=== PATIENT | female | born 1950 | race Caucasian/White ===

== ENCOUNTER 2018-03-31 21:15 | Observation (INO) | payer MEDICARE ==
[2018-03-31 21:33] VITALS: BMI 39.6
[2018-03-31] MEDS ORDERED: Sodium Chloride 0.9% 1,000 ML IV STA (21:50)
--- NOTE | 2018-03-31 22:00 | ED PDOC ---
Arrival/HPI - General Chief Complaint: GI Problem Time Seen by Provider: 03/31/18 21:35 Historian: Patient - History of Present Illness Narrative History of Present Illness (Text): 03/31/18 21:50 Lucrecia Hurt is a 67 year old female, whose past medical history includes anemia and familial polyposis, who presents to the Emergency department complaining of diarrhea. Patient states she has been experiencing multiple episodes of watery diarrhea since yesterday. Patient denies any fever, chills, chest pain, shortness of breath, nausea, vomiting, urinary symptoms, back pain, neck pain, headache, dizziness, or any other complaints. Time/Duration: 24 hours Symptom Onset: Gradual Symptom Course: Unchanged Activities at Onset: Light Context: Home Past Medical History - Provider Review Nursing Documentation Reviewed: Yes - Cardiac Hx Pacemaker: No - Pulmonary Hx Respiratory Disorders: No - Neurological Hx Paralysis: No - Hematological/Oncological Hx Anemia: Yes - Musculoskeletal/Rheumatological Hx Musculoskeletal Disorders: Yes Hx Falls: No - Gastrointestinal Hx Bowel Surgery: Yes (multiple) Hx Gall Bladder Disease: Yes (gallbladder removed) Other/Comment: stomach fibroids with hernia, abdominal mesh. colectomy, J pouch - Psychiatric Hx Emotional Abuse: No Hx Physical Abuse: No Hx Substance Use: No - Surgical History Hx Cholecystectomy: Yes - Anesthesia Hx Anesthesia: Yes Hx Anesthesia Reactions: No Hx Malignant Hyperthermia: No - Suicidal Assessment Feels Threatened In Home Enviroment: No Family/Social History - Physician Review Nursing Documentation Reviewed: Yes Family/Social History: No Known Family HX Smoking Status: Never Smoked Hx Alcohol Use: No Hx Substance Use: No Hx Substance Use Treatment: No Allergies/Home Meds Allergies/Adverse Reactions: Allergies No Known Allergies Allergy (Verified 03/31/18 21:33) Home Medications: Home Meds Medication Instructions Recorded Confirmed Loperamide [Loperamide HCl] 2 mg PO Q6 PRN 04/01/18 04/01/18 Metronidazole [Flagyl] 500 mg PO Q8 04/01/18 04/01/18 Review of Systems - Physician Review All systems were reviewed & negative as marked: Yes - Review of Systems Constitutional: Normal. absent: Fevers Eyes: Normal ENT: Normal Respiratory: Normal. absent: SOB, Cough Cardiovascular: Normal. absent: Chest Pain Gastrointestinal: Diarrhea. absent: Abdominal Pain, Vomiting Genitourinary Female: Normal. absent: Dysuria, Frequency, Hematuria, Urine Output Changes Musculoskeletal: Normal. absent: Back Pain, Neck Pain Skin: Normal. absent: Rash Neurological: Normal. absent: Headache, Dizziness Endocrine: Normal Hemo/Lymphatic: Normal Psychiatric: Normal Physical Exam Vital Signs Reviewed: Yes Vital Signs Temp Pulse Resp BP Pulse Ox 03/31/18 21:33 98.0 F 94 H 18 139/84 98 Temperature: Afebrile Blood Pressure: Normal Pulse: Regular Respiratory Rate: Normal Appearance: Positive for: Well-Appearing, Non-Toxic, Comfortable Pain Distress: None Mental Status: Positive for: Alert and Oriented X 3 - Systems Exam Head: Present: Atraumatic, Normocephalic Pupils: Present: PERRL Extroacular Muscles: Present: EOMI Conjunctiva: Present: Normal Mouth: Present: Moist Mucous Membranes Neck: Present: Normal Range of Motion Respiratory/Chest: Present: Clear to Auscultation, Good Air Exchange. No: Respiratory Distress, Accessory Muscle Use Cardiovascular: Present: Regular Rate and Rhythm, Normal S1, S2. No: Murmurs Abdomen: No: Tenderness, Distention, Peritoneal Signs Back: Present: Normal Inspection Upper Extremity: Present: Normal Inspection. No: Cyanosis, Edema Lower Extremity: Present: Normal Inspection. No: Edema Neurological: Present: GCS=15, CN II-XII Intact, Speech Normal Skin: Present: Warm, Dry, Normal Color. No: Rashes Psychiatric: Present: Alert, Oriented x 3, Normal Insight, Normal Concentration Medical Decision Making ED Course and Treatment: 03/31/18 21:50 Impression: 67 year old female complaining of diarrhea since yesterday. Plan: -- EKG -- Labs, cardiac enzymes, amylase, lipase -- Urinalysis -- IV fluids -- Reassess and disposition Prior Visits: Notes and results from previous visits were reviewed. Progress Notes: 03/31/18 22:00 Reviewed EKG, sinus tachycardia at [address]-segment elevations or depressions, no T-wave inversions, normal intervals. 04/01/18 01:08 CT Abdomen and Pelvis reviewed, shows: Colectomy. Fluid-filled mildly dilated small bowel loops. Minimal bilateral basilar subsegmental atelectatic pulmonary changes. Normal unenhanced liver. Cholecystectomy and nondilated extrahepatic biliary system. Normal unenhanced spleen. Normal pancreas. Normal bilateral adrenal glands. Normal size of the right kidney. There is no right renal mass. There are no right renal calculi. There is no right hydronephrosis. Normal visualized right ureter. Normal size of the left kidney. There is no left renal mass. There are no left renal calculi. There is no left hydronephrosis. Normal visualized left ureter. Normal visualized stomach. Normal small intestine. Normal colon. The appendix is visualized and appears normal. There is no demonstrated peritoneal fluid. Normal abdominal aorta. Normal inferior vena cava. Normal retroperitoneum. Normal urinary bladder. There is no pelvic mass lesion or lymphadenopathy. There is no pelvic fluid. Diastasis of the abdominal wall. Moderate diffuse spondylosis. IMPRESSION: Fluid-filled dilated small bowel loops. Most probably ileus. Developing/low grade partial obstruction is less likely. Clinical evaluation is suggested. No bowel perforation or pneumatosis intestinalis. Prior colectomy. Electronically signed on Apr 01, 2018 12:41:32 AM EST by: Braydon Crook M.D., Certified by ABR, MSK, Neuroradiology 04/01/18 01:[address] Ajay Sánchez, who is aware and agrees with plan. Accepts pt in to hospitalist service. Pt will go to [facility] observation for intractable diarrhea. administrative resident notified. - Lab Interpretations I have reviewed the lab results: Yes - RAD Interpretation Ui Engineer: Radiologist - EKG Interpretation Interpreted by ED Physician: Yes Type: 12 lead EKG - Medication Orders Current Medication Orders: Sodium Chloride (Sodium Chloride 0.9%) 1,000 mls @ 100 mls/hr IV .Q10H STA Stop: 04/01/18 07:49 Last Admin: 03/31/18 21:56 Dose: 100 mls/hr eMAR Start Stop Document 03/31/18 21:56 AD (Rec: 03/31/18 21:56 AD [id number]) Intravenous Solution Start Date 03/31/18 Start Time 21:56 - Scribe Statement The provider has reviewed the documentation as recorded by the Brittany Almanzar Provider Scribe Attestation: All medical record entries made by the Scribe were at my direction and personally dictated by me. I have reviewed the chart and agree that the record accurately reflects my personal performance of the history, physical exam, medical decision making, and the department course for this patient. I have also personally directed, reviewed, and agree with the discharge instructions and disposition. Disposition/Present on Arrival - Present on Arrival Any Indicators Present on Arrival: No History of DVT/PE: No History of Uncontrolled Diabetes: No Urinary Catheter: No History of Decub. Ulcer: No History Surgical Site Infection Following: None - Disposition Have Diagnosis and Disposition been Completed?: Yes Diagnosis: Intractable diarrhea Disposition: HOSPITALIZED Disposition Time: 01:30 Condition: FAIR
[2018-03-31 22:12] LABS: BASO # 0.03 K/mm3 (0.0-2.0); BASO % 0.3 % (0.0-3.0); EOS % 0.3 % (1.5-5.0); GRAN # 6.08 (1.4-6.5); GRAN % 55.6 % (50.0-68.0); HEMOGLOBIN 14.5 g/dL (12.0-16.0); LYMPH % 36.9 % (22.0-35.0); MEAN CELL VOLUME 77.7 fl (80.0-105.0); MEAN CORPUSCULAR HEMOGLOBIN 25.1 pg (25.0-35.0); MEAN CORPUSCULAR HGB CONC 32.3 g/dl (31.0-37.0); MONO # 0.8 (0.1-0.6); MONO % 6.9 % (1.0-6.0); RBC 5.78 10^6/uL (3.5-6.1); RED CELL DISTRIBUTION WIDTH 16.1 % (11.5-14.5); WHITE BLOOD COUNT 10.9 10^3/uL (4.5-11.0)
[2018-03-31 22:21] LABS: INR 1.14; PARTIAL THROMBOPLASTIN TIME 33.2 Seconds (25.1-36.5)
[2018-03-31 22:25] LABS: ALB/GLOB RATIO 1.1 (1.1-1.8); ALBUMIN 4.8 g/dL (3.0-4.8); ALT/SGPT 28 U/L (7-56); AMYLASE 64 U/L (35-125); AST/SGOT 28 U/L (14-36); BLOOD UREA NITROGEN 23 mg/dL (7-21); CALCIUM 9.7 mg/dL (8.4-10.5); GFR NON-AFRICAN AMERICAN 41; LIPASE 59 U/L (23-300)
[2018-03-31 22:36] LABS: TROPONIN I < 0.01 ng/mL
[2018-04-01] MEDS ORDERED: Pneumococcal 23-Valent Vaccine IM ONE (03:33)
[2018-04-01] MEDS ORDERED: Influenza Vaccine 60 mcg/0.5 mL SYR (4YR UP) IM ONE (03:33)
[2018-04-01 03:35] VITALS: RESP 20
--- NOTE | 2018-04-01 03:55 | CP.PCM.HP ---
History of Present Illness - History of Present Illness History of Present Illness: Trupti Livingston PGY-1 Medicine H&P Note for Dr. Elma Sánchez: CC: Diarrhea Pt is a 67 yo F with pmhx of FAP s/p total colectomy who presents to the emergency department for multiple watery stools since Thursday. Pt states that she had suddenly had >5 watery stools since Thursday. She denies recent travel, or eating out at any restaurants. She denies having any sick contacts in the family or anyone in the family having similar symptoms. She also denies the use of recent abx, except for 3 doses of flagyl which she states she began yester day. She denies any associated nausea, vomiting or having blood in her BMs. She also denies fevers, chills, SOB, cough, chest pain, palpitations, dyusria, frequency, lightheadedness or dizziness. She does report R sided abdominal soreness. Pmhx: FAP s/p total colectomy Pshx: Total colectomy 1989, hernia repairx2, jonatan Meds: Denies All: NKDA Social: Denies any tobacco use hx, etoh or illicit drug use Fam Hx: Sister: FAP PMD: [place] GI: Rosa Present on Admission - Present on Admission Any Indicators Present on Admission: No Review of Systems - Review of Systems Review of Systems: 12 point ROS reviewed and negative except for noted above in HPI Past Patient History - Past Social History Smoking Status: Never Smoked - CARDIAC Hx Cardiac Disorders: No Hx Pacemaker: No - PULMONARY Hx Respiratory Disorders: No - NEUROLOGICAL Hx Neurological Disorder: No - HEENT Hx HEENT Problems: No - RENAL Hx Chronic Kidney Disease: No - ENDOCRINE/METABOLIC Hx Endocrine Disorders: No - HEMATOLOGICAL/ONCOLOGICAL Hx Blood Disorders: Yes Hx Anemia: Yes - INTEGUMENTARY Hx Dermatological Problems: Yes Hx Eczema: Yes - MUSCULOSKELETAL/RHEUMATOLOGICAL Hx Musculoskeletal Disorders: No Hx Falls: No - GASTROINTESTINAL Hx Gastrointestinal Disorders: No Hx Colostomy: Yes (with reversal) Hx Crohn's Disease: No (patient unsure) Hx Diverticulitis: No Hx Gall Bladder Disease: Yes (gallbladder removed) Hx Gastroesophageal Reflux: Yes Other/Comment: stomach fibroids with hernia, abdominal mesh. 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 - PSYCHIATRIC Hx Psychophysiologic Disorder: No Hx Emotional Abuse: No Hx Physical Abuse: No Hx Substance Use: No - SURGICAL HISTORY Hx Surgeries: Yes Hx Appendectomy: Yes Hx Cholecystectomy: Yes - ANESTHESIA Hx Anesthesia: Yes Hx Anesthesia Reactions: No Hx Malignant Hyperthermia: No Meds Allergies/Adverse Reactions: Allergies Allergy/AdvReac Type Severity Reaction Status Date / Time No Known Allergies Allergy Verified 03/31/18 21:33 Physical Exam - Constitutional Appears: Well, Non-toxic, No Acute Distress - Head Exam Head Exam: ATRAUMATIC, NORMAL INSPECTION, NORMOCEPHALIC - Eye Exam Eye Exam: EOMI, Normal appearance, PERRL - ENT Exam ENT Exam: Mucous Membranes Dry - Respiratory Exam Respiratory Exam: Clear to Auscultation Bilateral, NORMAL BREATHING PATTERN. absent: Accessory Muscle Use, Decreased Breath Sounds, Rales, Rhonchi, Wheezes, Respiratory Distress, Stridor - Cardiovascular Exam Cardiovascular Exam: RRR, +S1, +S2. absent: Gallop, Rubs, Systolic Murmur - GI/Abdominal Exam GI & Abdominal Exam: Hyperactive Bowel Sounds, Soft, Tenderness (present diffusely on R side of abdomen) - Extremities Exam Extremities exam: Positive for: normal capillary refill, normal inspection, pedal pulses present. Negative for: pedal edema - Back Exam Back exam: NORMAL INSPECTION. absent: CVA tenderness (L), CVA tenderness (R) - Neurological Exam Neurological exam: Alert, Oriented x3 - Psychiatric Exam Psychiatric exam: Normal Affect, Normal Mood - Skin Skin Exam: Dry, Intact, Normal Color, Warm Results - Vital Signs Recent Vital Signs: Last Vital Signs Temp 99.7 F H 04/01/18 02:40 Pulse 89 04/01/18 02:40 Resp 20 04/01/18 02:40 BP 134/86 04/01/18 02:40 Pulse Ox 98 04/01/18 02:40 - Labs Result Diagrams: 03/31/18 22:07 03/31/18 22:07 Labs: Laboratory Results - last 24 hr 03/31/18 03/31/18 03/31/18 22:07 22:07 22:07 WBC 10.9 RBC 5.78 Hgb 14.5 Hct 44.9 MCV 77.7 L MCH 25.1 MCHC 32.3 RDW 16.1 H Plt Count 282 MPV 10.0 Gran % 55.6 Lymph % (Auto) 36.9 H Crook % (Auto) 6.9 H Eos % (Auto) 0.3 L Baso % (Auto) 0.3 Gran # 6.08 Lymph # (Auto) 4.0 H Crook # (Auto) 0.8 H Eos # (Auto) 0.0 Baso # (Auto) 0.03 PT 13.0 H INR 1.14 APTT 33.2 Sodium 140 Potassium 3.9 Chloride 105 Carbon Dioxide 21 Anion Gap 18 BUN 23 H Creatinine 1.3 H Est GFR ( Amer) 50 Est GFR (Non-Af Amer) 41 Random Glucose 100 Calcium 9.7 Total Bilirubin 0.5 AST 28 ALT 28 Alkaline Phosphatase 95 Lactate Dehydrogenase 421 Total Creatine Kinase 57 Troponin I < 0.01 Total Protein 9.0 H Albumin 4.8 Globulin 4.2 Albumin/Globulin Ratio 1.1 Amylase 64 Lipase 59 Assessment & Plan - Assessment and Plan (Free Text) Assessment: Pt is a 67 yo F with pmhx of FAP s/p total colectomy who presents to the emergency department for multiple watery stools since Thursday. Plan: 1. Watery Diarrhea complicated by hx of FAP and total colectomy: - F/u CT abd/pelvis read - GI consulted - Stool WBC, stool culture and stool C.diff 2. PPX: - GI: Protonix - DVT: Heparin
[2018-04-01] MEDS ORDERED: Sodium Chloride 0.9% 1,000 ML IV SCH (05:00)
[2018-04-01] MEDS: Pantoprazole 40 mg EC Tab PO SCH (05:12)
[2018-04-01 06:38] LABS: PH,URINE 5.5 (4.7-8.0); URINE BILIRUBIN MODERATE (NEGATIVE); URINE BLOOD MODERATE (NEGATIVE); URINE GLUCOSE (UA) NEGATIVE (NEGATIVE); URINE LEUKOCYTE ESTERASE SMALL Leu/uL (NEGATIVE); URINE PROTEIN TRACE mg/dL (<30 mg/dL); URINE UROBILINOGEN 0.2 E.U./dL (<1 E.U./dL)
[2018-04-01 06:57] LABS: URINE APPEARANCE CLOUDY (CLEAR); URINE COLOR YELLOW (YELLOW)
[2018-04-01 07:02] LABS: BASO # 0.04 K/mm3 (0.0-2.0); BASO % 0.5 % (0.0-3.0); EOS # 0.1 (0.0-0.7); EOS % 0.8 % (1.5-5.0); GRAN # 4.86 (1.4-6.5); GRAN % 55.1 % (50.0-68.0); HEMOGLOBIN 13.5 g/dL (12.0-16.0); LYMPH # 3.1 (1.2-3.4); LYMPH % 34.8 % (22.0-35.0); MEAN CELL VOLUME 76.8 fl (80.0-105.0); MEAN CORPUSCULAR HEMOGLOBIN 24.9 pg (25.0-35.0); MEAN CORPUSCULAR HGB CONC 32.5 g/dl (31.0-37.0); MEAN PLATELET VOLUME 9.9 fl (7.0-11.0); MONO # 0.8 (0.1-0.6); MONO % 8.8 % (1.0-6.0); RBC 5.42 10^6/uL (3.5-6.1); RED CELL DISTRIBUTION WIDTH 16.1 % (11.5-14.5); WHITE BLOOD COUNT 8.8 10^3/uL (4.5-11.0)
[2018-04-01 07:04] LABS: URINE BACTERIA LARGE (NEG)
[2018-04-01 07:32] LABS: ALBUMIN 4.2 g/dL (3.0-4.8); ALT/SGPT 27 U/L (7-56); AST/SGOT 21 U/L (14-36); BLOOD UREA NITROGEN 21 mg/dL (7-21); CALCIUM 9.5 mg/dL (8.4-10.5); GFR NON-AFRICAN AMERICAN 55
--- NOTE | 2018-04-01 07:54 | CP.PCM.CON ---
<TennilleclairoliZurdo - Last Filed: 04/01/18 12:24> History of Present Illness - History of Present Illness History of Present Illness: GI Fellow PGY4, Consult note. Lucrecia Hurt, 67F, hx of familial adenomatous polyposis syndrome presenting with acute diarrhea. The diarrhea started 2 days ago after recent travel to [place] to visit daughter who was in the hospital. Patient states the diarrhea is 12x/day, watery, non-bloody, NO abdominal pain, fever. She tried Flagyl and Imodium at home without improvement. She does not recall eating any undercooked food are having any sick contacts. w/u revealed abnormal UA and +FOBT. CBC and CMP were fairly unremarkable, mild lymphocytosis. CT of abdomen has been completed, but not read at this time. Last CSPY was less than 1 year ago in [place]. Last EGD was 2015 with multiple esophageal and gastric adenomatous polyps. PMHx - as above PSHx - Total colectomy, cholecystectomy, hernia FMHx - Polyps SocHx - Denies tobacco use. Rare alcohol use. 12pt ROS completed and negative except for above. Past Patient History - Past Social History Smoking Status: Never Smoked - CARDIAC Hx Cardiac Disorders: No Hx Pacemaker: No - PULMONARY Hx Respiratory Disorders: No - NEUROLOGICAL Hx Neurological Disorder: No - HEENT Hx HEENT Problems: No - RENAL Hx Chronic Kidney Disease: No - ENDOCRINE/METABOLIC Hx Endocrine Disorders: No - HEMATOLOGICAL/ONCOLOGICAL Hx Blood Disorders: Yes Hx Anemia: Yes - INTEGUMENTARY Hx Dermatological Problems: Yes Hx Eczema: Yes - MUSCULOSKELETAL/RHEUMATOLOGICAL Hx Musculoskeletal Disorders: No Hx Falls: No - GASTROINTESTINAL Hx Gastrointestinal Disorders: No Hx Colostomy: Yes (with reversal) Hx Crohn's Disease: No (patient unsure) Hx Diverticulitis: No Hx Gall Bladder Disease: Yes (gallbladder removed) Hx Gastroesophageal Reflux: Yes Other/Comment: stomach fibroids with hernia, abdominal mesh. 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 - PSYCHIATRIC Hx Psychophysiologic Disorder: No Hx Emotional Abuse: No Hx Physical Abuse: No Hx Substance Use: No - SURGICAL HISTORY Hx Surgeries: Yes Hx Appendectomy: Yes Hx Cholecystectomy: Yes - ANESTHESIA Hx Anesthesia: Yes Hx Anesthesia Reactions: No Hx Malignant Hyperthermia: No Meds Home Medications: Home Medication List Medication Instructions Recorded Confirmed Type Ciprofloxacin HCl [Cipro] 500 mg PO BID #2 tablet 04/02/18 Rx Allergies/Adverse Reactions: Allergies Allergy/AdvReac Type Severity Reaction Status Date / Time No Known Allergies Allergy Verified 03/31/18 21:33 - Medications Medications: Current Medications Heparin Sodium (Porcine) (Heparin) 5,000 units SC Q8 [facility]; Protocol Last Admin: 04/01/18 05:10 Dose: 5,000 units Sodium Chloride (Sodium Chloride 0.9%) 1,000 mls @ 100 mls/hr IV .Q10H [facility] Last Admin: 04/01/18 05:12 Dose: 100 mls/hr Pantoprazole Sodium (Protonix Ec Tab) 40 mg PO 0600 [facility] Last Admin: 04/01/18 05:12 Dose: 40 mg Physical Exam - Constitutional Appears: Non-toxic, No Acute Distress - Head Exam Head Exam: NORMAL INSPECTION, NORMOCEPHALIC - Eye Exam Eye Exam: EOMI, Normal appearance - ENT Exam ENT Exam: Mucous Membranes Dry, Normal Exam - Respiratory Exam Respiratory Exam: Clear to Auscultation Bilateral, NORMAL BREATHING PATTERN - Cardiovascular Exam Cardiovascular Exam: REGULAR RHYTHM, +S1, +S2 - GI/Abdominal Exam GI & Abdominal Exam: Hyperactive Bowel Sounds, Soft. absent: Organomegaly, Tenderness - Extremities Exam Extremities exam: Positive for: full ROM, normal inspection - Neurological Exam Neurological exam: Alert, CN II-XII Intact, Oriented x3 - Psychiatric Exam Psychiatric exam: Normal Affect, Normal Mood - Skin Skin Exam: Dry, Normal Color Results - Vital Signs Recent Vital Signs: Last Vital Signs Temp 99.7 F H 04/01/18 02:40 Pulse 89 04/01/18 02:40 Resp 20 04/01/18 02:40 BP 134/86 04/01/18 02:40 Pulse Ox 98 04/01/18 02:40 - Labs Result Diagrams: 04/01/18 06:00 04/01/18 06:00 Labs: Laboratory Results - last 24 hr 03/31/18 03/31/18 03/31/18 22:07 22:07 22:07 WBC 10.9 RBC 5.78 Hgb 14.5 Hct 44.9 MCV 77.7 L MCH 25.1 MCHC 32.3 RDW 16.1 H Plt Count 282 MPV 10.0 Gran % 55.6 Lymph % (Auto) 36.9 H [place] % (Auto) 6.9 H Eos % (Auto) 0.3 L Baso % (Auto) 0.3 Gran # 6.08 Lymph # (Auto) 4.0 H [place] # (Auto) 0.8 H Eos # (Auto) 0.0 Baso # (Auto) 0.03 PT 13.0 H INR 1.14 APTT 33.2 Sodium 140 Potassium 3.9 Chloride 105 Carbon Dioxide 21 Anion Gap 18 BUN 23 H Creatinine 1.3 H Est GFR ( Amer) 50 Est GFR (Non-Af Amer) 41 Random Glucose 100 Calcium 9.7 Phosphorus Magnesium Total Bilirubin 0.5 AST 28 ALT 28 Alkaline Phosphatase 95 Lactate Dehydrogenase 421 Total Creatine Kinase 57 Troponin I < 0.01 Total Protein 9.0 H Albumin 4.8 Globulin 4.2 Albumin/Globulin Ratio 1.1 Amylase 64 Lipase 59 Urine Color Urine Appearance Urine pH Ur Specific F[place] Urine Protein Urine Glucose (UA) Urine Ketones Urine Blood Urine Nitrate Urine Bilirubin Urine Urobilinogen Ur Leukocyte Esterase Urine RBC Urine WBC Ur Epithelial Cells Urine Bacteria Urine Other Stool Occult Blood 04/01/18 04/01/18 04/01/18 04:20 05:55 06:00 WBC 8.8 RBC 5.42 Hgb 13.5 Hct 41.6 MCV 76.8 L MCH 24.9 L MCHC 32.5 RDW 16.1 H Plt Count 241 MPV 9.9 Gran % 55.1 Lymph % (Auto) 34.8 [place] % (Auto) 8.8 H Eos % (Auto) 0.8 L Baso % (Auto) 0.5 Gran # 4.86 Lymph # (Auto) 3.1 [place] # (Auto) 0.8 H Eos # (Auto) 0.1 Baso # (Auto) 0.04 PT INR APTT Sodium Potassium Chloride Carbon Dioxide Anion Gap BUN Creatinine Est GFR ( Amer) Est GFR (Non-Af Amer) Random Glucose Calcium Phosphorus Magnesium Total Bilirubin AST ALT Alkaline Phosphatase Lactate Dehydrogenase Total Creatine Kinase Troponin I Total Protein Albumin Globulin Albumin/Globulin Ratio Amylase Lipase Urine Color Yellow Urine Appearance Cloudy Urine pH 5.5 Ur Specific Fritch >= 1.030 Urine Protein Trace H Urine Glucose (UA) Negative Urine Ketones Negative Urine Blood Moderate H Urine Nitrate Positive H Urine Bilirubin Moderate H Urine Urobilinogen 0.2 Ur Leukocyte Esterase Small H Urine RBC 5 - 10 Urine WBC 10 - 15 Ur Epithelial Cells 6 - 8 Urine Bacteria Large Urine Other Mucus Stool Occult Blood Positive H 04/01/18 06:00 WBC RBC Hgb Hct MCV MCH MCHC RDW Plt Count MPV Gran % Lymph % (Auto) [place] % (Auto) Eos % (Auto) Baso % (Auto) Gran # Lymph # (Auto) [place] # (Auto) Eos # (Auto) Baso # (Auto) PT INR APTT Sodium 140 Potassium 4.0 Chloride 110 H Carbon Dioxide 17 L Anion Gap 17 BUN 21 Creatinine 1.0 Est GFR ( Amer) > 60 Est GFR (Non-Af Amer) 55 Random Glucose 108 Calcium 9.5 Phosphorus 4.1 Magnesium 1.8 Total Bilirubin 0.6 AST 21 ALT 27 Alkaline Phosphatase 86 Lactate Dehydrogenase Total Creatine Kinase Troponin I Total Protein 8.1 Albumin 4.2 Globulin 4.0 Albumin/Globulin Ratio 1.0 L Amylase Lipase Urine Color Urine Appearance Urine pH Ur Specific [place] Urine Protein Urine Glucose (UA) Urine Ketones Urine Blood Urine Nitrate Urine Bilirubin Urine Urobilinogen Ur Leukocyte Esterase Urine RBC Urine WBC Ur Epithelial Cells Urine Bacteria Urine Other Stool Occult Blood Assessment & Plan - Assessment and Plan (Free Text) Assessment: #Acute diarrhea with dehydration #FAP s/p total colectomy, J-pouch #Positive FOBT #Abnormal UA PLAN: - Acute diarrhea is likely infectious gastroenteritis. - She has total colectomy so symptoms are likely worse than typical patient with similar disease. - Recommend continued supportive care, importantly IV fluid and electrolyte replacement - f/u Cdiff results and other stool studies. - She sees GI in [place] regularly for CSPY follow up. Last was less than 1 year ago. - Abx for UTI per primary. Currently ceftriaxone which should cover many gram n egative bacteria in the gut. Add Flagyl for anaerobe coverage. - Start bismuth. - Date & Time Date: 04/01/18 Time: 07:52 <Jessica Lee V - Last Filed: 04/02/18 19:58> Meds - Medications Medications: Current Medications Bismuth Subsalicylate (Pepto-Bismol) 262 mg PO TID [facility] Last Admin: 04/01/18 17:42 Dose: Not Given Heparin Sodium (Porcine) (Heparin) 5,000 units SC Q8 [facility]; Protocol Last Admin: 04/01/18 21:25 Dose: Not Given Ceftriaxone Sodium (Rocephin 1 Gram Ivpb) 1 gm in 100 mls @ 100 mls/hr IVPB DAILY [facility]; Protocol Last Admin: 04/01/18 09:03 Dose: 100 mls/hr Lactated Ringer's (Lactated Ringer's) 1,000 mls @ 100 mls/hr IV .Q10H [facility] Last Admin: 04/01/18 19:34 Dose: 100 mls/hr Pantoprazole Sodium (Protonix Ec Tab) 40 mg PO 0600 [facility] Last Admin: 04/01/18 05:12 Dose: 40 mg Results - Vital Signs Recent Vital Signs: Last Vital Signs Temp 98.8 F 04/01/18 15:50 Pulse 80 04/01/18 15:50 Resp 20 04/01/18 15:50 BP 119/77 04/01/18 15:50 Pulse Ox 98 04/01/18 15:50 - Labs Result Diagrams: 04/02/18 06:00 04/02/18 06:00 Labs: Laboratory Results - last 24 hr 04/01/18 04/01/18 04/01/18 04:20 04:20 05:55 WBC RBC Hgb Hct MCV MCH MCHC RDW Plt Count MPV Gran % Lymph % (Auto) [place] % (Auto) Eos % (Auto) Baso % (Auto) Gran # Lymph # (Auto) [place] # (Auto) Eos # (Auto) Baso # (Auto) Sodium Potassium Chloride Carbon Dioxide Anion Gap BUN Creatinine Est GFR ( Amer) Est GFR (Non-Af Amer) Random Glucose Calcium Phosphorus Magnesium Total Bilirubin AST ALT Alkaline Phosphatase Total Protein Albumin Globulin Albumin/Globulin Ratio Urine Color Yellow Urine Appearance Cloudy Urine pH 5.5 Ur Specific Fritch >= 1.030 Urine Protein Trace H Urine Glucose (UA) Negative Urine Ketones Negative Urine Blood Moderate H Urine Nitrate Positive H Urine Bilirubin Moderate H Urine Urobilinogen 0.2 Ur Leukocyte Esterase Small H Urine RBC 5 - 10 Urine WBC 10 - 15 Ur Epithelial Cells 6 - 8 Urine Bacteria Large Urine Other Mucus Stool Occult Blood Positive H Stool Leukocytes, Qual Negative 04/01/18 04/01/18 06:00 06:00 WBC 8.8 RBC 5.42 Hgb 13.5 Hct 41.6 MCV 76.8 L MCH 24.9 L MCHC 32.5 RDW 16.1 H Plt Count 241 MPV 9.9 Gran % 55.1 Lymph % (Auto) 34.8 [place] % (Auto) 8.8 H Eos % (Auto) 0.8 L Baso % (Auto) 0.5 Gran # 4.86 Lymph # (Auto) 3.1 [place] # (Auto) 0.8 H Eos # (Auto) 0.1 Baso # (Auto) 0.04 Sodium 140 Potassium 4.0 Chloride 110 H Carbon Dioxide 17 L Anion Gap 17 BUN 21 Creatinine 1.0 Est GFR ( Amer) > 60 Est GFR (Non-Af Amer) 55 Random Glucose 108 Calcium 9.5 Phosphorus 4.1 Magnesium 1.8 Total Bilirubin 0.6 AST 21 ALT 27 Alkaline Phosphatase 86 Total Protein 8.1 Albumin 4.2 Globulin 4.0 Albumin/Globulin Ratio 1.0 L Urine Color Urine Appearance Urine pH Ur Specific F[place]ch Urine Protein Urine Glucose (UA) Urine Ketones Urine Blood Urine Nitrate Urine Bilirubin Urine Urobilinogen Ur Leukocyte Esterase Urine RBC Urine WBC Ur Epithelial Cells Urine Bacteria Urine Other Stool Occult Blood Stool Leukocytes, Qual Attending/Attestation - Attestation I have personally seen and examined this patient.: Yes I have fully participated in the care of the patient.: Yes I have reviewed all pertinent clinical information: Yes Notes (Text): This is a delayed addendum to GI consult report dictated by the GI Fellow.The patient was seen and examined earlier. Medical records, lab studies, imagings were reviewed. Last 24 hours events reviewed. Agreed with the above treatment plan as outlined in GI Fellow 's notes with the addition of the following acute onset of diarrhea probably infectious UTI History of FAP status post colon resection with a J-pouch History of ventral hernia status post repair with mesh History of small bowel obstruction status post surgery History of gastric carcinoma On examination abdomen soft Kenan ls present Continue ceftriaxone Patient could not tolerate Flagyl, complaining of epigastric discomfort Follow-up stool studies This is a Follow-up for FAP and gastric adenoma 04/02/18 19:54
[2018-04-01] MEDS: Lactated Ringer's 1,000 ML IV SCH ×2 (09:03→19:34)
[2018-04-01] MEDS: cefTRIAXone 1 gm 1 GM/100 ML BAG IVPB SCH (09:03)
--- NOTE | 2018-04-01 12:27 | CT ---
Date of service: 03/31/2018 PROCEDURE: CT Abdomen and Pelvis without intravenous contrast HISTORY: abd pain COMPARISON: None. TECHNIQUE: Without contrast.. Contrast dose: Radiation dose: Total exam DLP = 1027.48 mGy-cm. This CT exam was performed using one or more of the following dose reduction techniques: Automated exposure control, adjustment of the mA and/or kV according to patient size, and/or use of iterative reconstruction technique. FINDINGS: LOWER THORAX: Unremarkable. LIVER: Unremarkable. No gross lesion or ductal dilatation. GALLBLADDER AND BILE DUCTS: Unremarkable. PANCREAS: Unremarkable. No gross lesion or ductal dilatation. SPLEEN: Unremarkable. ADRENALS: Unremarkable. No mass. KIDNEYS AND URETERS: Unremarkable. No hydronephrosis. No solid mass. VASCULATURE: Unremarkable. No aortic aneurysm. No aortic atherosclerotic calcification or mural plaque present. BOWEL: Fluid-filled small bowel loops are seen in the pelvis. There is no distension. Findings most likely due to ileus. Previous colectomy. Suture line seen in the rectosigmoid APPENDIX: Resected. Colectomy PERITONEUM: Unremarkable. No free fluid. No free air. There is diastasis of the abdominal wall with no focal defect LYMPH NODES: Unremarkable. No enlarged lymph nodes. BLADDER: Unremarkable. REPRODUCTIVE: Unremarkable. BONES: No acute fracture. OTHER FINDINGS: The report concurs with the preliminary [facility] report IMPRESSION: Fluid-filled small bowel loops are seen in the pelvis. There is no distension. Findings most likely due to ileus. Previous colectomy. Suture line seen in the rectosigmoid No acute intra-abdominal findings
[2018-04-01] MEDS: Bismuth Subsalicylate 262 mg/15 ml Sus (240 ml) PO SCH ×2 (13:59→17:42)
[2018-04-02] MEDS: Pantoprazole 40 mg EC Tab PO SCH (05:05)
[2018-04-02] MEDS: Lactated Ringer's 1,000 ML IV SCH (05:05)
[2018-04-02 06:26] LABS: BASO # 0.03 K/mm3 (0.0-2.0); BASO % 0.4 % (0.0-3.0); EOS # 0.1 (0.0-0.7); EOS % 0.7 % (1.5-5.0); GRAN # 3.01 (1.4-6.5); GRAN % 41.9 % (50.0-68.0); HEMOGLOBIN 11.9 g/dL (12.0-16.0); LYMPH # 3.4 (1.2-3.4); LYMPH % 47.8 % (22.0-35.0); MEAN CELL VOLUME 77.6 fl (80.0-105.0); MEAN CORPUSCULAR HEMOGLOBIN 24.6 pg (25.0-35.0); MEAN CORPUSCULAR HGB CONC 31.7 g/dl (31.0-37.0); MEAN PLATELET VOLUME 9.8 fl (7.0-11.0); MONO # 0.7 (0.1-0.6); MONO % 9.2 % (1.0-6.0); RBC 4.83 10^6/uL (3.5-6.1); RED CELL DISTRIBUTION WIDTH 16.2 % (11.5-14.5); WHITE BLOOD COUNT 7.2 10^3/uL (4.5-11.0)
[2018-04-02 06:40] LABS: ALB/GLOB RATIO 1.1 (1.1-1.8); ALT/SGPT 29 U/L (7-56); AST/SGOT 22 U/L (14-36)
[2018-04-02 06:42] LABS: ALBUMIN 3.5 g/dL (3.0-4.8); BLOOD UREA NITROGEN 16 mg/dL (7-21); CALCIUM 8.8 mg/dL (8.4-10.5); GFR NON-AFRICAN AMERICAN 55
[2018-04-02] MEDS ORDERED: metroNIDAZOLE IV 500 mg/100 ml 500 MG/100 ML BAG IVPB SCH (06:45)
--- NOTE | 2018-04-02 08:00 | CARD ---
APPROVED REPORT Date of service: 03/31/2018 EKG Measurement Heart [id number] [id number] <Conclusion> Sinus tachycardia LAD PRWP NSSTW changes Prolonged QTc
[2018-04-02 08:14] VITALS: BP 129/74; PULSE 78; TEMP 97.7; O2SAT 95
[2018-04-02] MEDS: cefTRIAXone 1 gm 1 GM/100 ML BAG IVPB SCH (09:54)
[2018-04-02] MEDS: Bismuth Subsalicylate 262 mg/15 ml Sus (240 ml) PO SCH (10:09)
--- NOTE | 2018-04-02 12:13 | CP.PCM.PN ---
<Zurdo Peoples - Last Filed: 04/02/18 14:22> Subjective - Date & Time of Evaluation Date of Evaluation: 04/02/18 Time of Evaluation: 12:03 - Subjective Subjective: Patient feels much better today. BMs are improving in frequency and consistency. Abdominal pain has improved. Denies nausea, vomiting. She is tolerating diet. Objective - Vital Signs/Intake and Output Vital Signs (last 24 hours): Temp Pulse Resp BP Pulse Ox 97.7 F 78 20 129/74 95 04/02/18 08:14 04/02/18 08:14 04/02/18 08:14 04/02/18 08:14 04/02/18 08:14 Intake and Output: 04/02/18 04/02/18 06:59 18:59 Intake Total 1440 Balance 1440 - Medications Medications: Current Medications Bismuth Subsalicylate (Pepto-Bismol) 262 mg PO TID [facility] Last Admin: 04/02/18 10:09 Dose: Not Given Heparin Sodium (Porcine) (Heparin) 5,000 units SC Q8 [facility]; Protocol Last Admin: 04/02/18 05:05 Dose: 5,000 units Ceftriaxone Sodium (Rocephin 1 Gram Ivpb) 1 gm in 100 mls @ 100 mls/hr IVPB DAILY [facility]; Protocol Last Admin: 04/02/18 09:54 Dose: 100 mls/hr Lactated Ringer's (Lactated Ringer's) 1,000 mls @ 100 mls/hr IV .Q10H [facility] Last Admin: 04/02/18 05:05 Dose: 100 mls/hr Metronidazole (Flagyl) 500 mg in 100 mls @ 100 mls/hr IVPB Q8 [facility]; Protocol Last Admin: 04/02/18 11:03 Dose: 100 mls/hr Pantoprazole Sodium (Protonix Ec Tab) 40 mg PO 0600 [facility] Last Admin: 04/02/18 05:05 Dose: 40 mg - Labs Labs: 04/02/18 06:00 04/02/18 06:00 PT 13.0 SECONDS (9.4-12.5) H 03/31/18 22:07 INR 1.14 03/31/18 22:07 APTT 33.2 Seconds (25.1-36.5) 03/31/18 22:07 - Constitutional Appears: Non-toxic, No Acute Distress - Head Exam Head Exam: NORMAL INSPECTION - Eye Exam Eye Exam: EOMI, Normal appearance - ENT Exam ENT Exam: Mucous Membranes Moist - Respiratory Exam Respiratory Exam: Clear to Ausculation Bilateral, NORMAL BREATHING PATTERN - Cardiovascular Exam Cardiovascular Exam: REGULAR RHYTHM, +S1, +S2 - GI/Abdominal Exam GI & Abdominal Exam: Soft, Normal Bowel Sounds. absent: Tenderness - Neurological Exam Neurological Exam: Alert, Awake, Oriented x3 - Psychiatric Exam Psychiatric exam: Normal Affect, Normal Mood - Skin Skin Exam: Dry, Normal Color Assessment and Plan - Assessment and Plan (Free Text) Assessment: #Acute diarrhea with dehydration #FAP s/p total colectomy, J-pouch #Positive FOBT #Abnormal UA #Chronic anemia, microcytic PLAN: - Acute diarrhea is likely infectious gastroenteritis. +/- Pouchitis. - She has total colectomy so symptoms are likely worse than typical patient with similar disease. - Recommend continued supportive care - f/u Cdiff results and other stool studies. - She sees GI in [place] regularly for CSPY follow up. Last EGD/CSPY was less than 1 year ago. - Abx for UTI per primary. Currently ceftriaxone which should cover many gram negative bacteria in the gut. - Flagyl for anaerobe coverage. - Patient would benefit from discussion with PMD about supplemental iron as an outpt. - OK to discharge patient from GI perspective. <Jessica Lee V - Last Filed: 04/02/18 19:53> Objective - Vital Signs/Intake and Output Vital Signs (last 24 hours): Temp Pulse Resp BP Pulse Ox 97.7 F 78 20 129/74 95 04/02/18 08:14 04/02/18 08:14 04/02/18 08:14 04/02/18 08:14 04/02/18 08:14 - Labs Labs: 04/02/18 06:00 04/02/18 06:00 PT 13.0 SECONDS (9.4-12.5) H 03/31/18 22:07 INR 1.14 03/31/18 22:07 APTT 33.2 Seconds (25.1-36.5) 03/31/18 22:07 Attending/Attestation - Attestation I have personally seen and examined this patient.: Yes I have fully participated in the care of the patient.: Yes I have reviewed all pertinent clinical information, including history, physical exam and plan: Yes Notes (Text): This is an addendum to GI progress report dictated by the GI Fellow.The patient was seen and examined earlier. Medical records, lab studies, imagings were reviewed. Last 24 hours events reviewed. Agreed with the above treatment plan as outlined in GI Fellow 's notes with the addition of the following Patient was a much better On exam abdomen soft Slowdown Complete outpatient antibiotic course Patient is being foll in [facility] for its AP and Patient has history of gastric adenoma patient was advised to follow up in [facility] regarding Copies of the endoscopy report and pathology was already given to the patient's is a physician for follow-up at the tertiary care center Patient spelled to visit [facility] along with her daughter in 04/02/18 19:49
--- NOTE | 2018-04-02 16:33 | CP.PCM.DIS ---
<Chris Jansen - Last Filed: 04/02/18 16:42> Provider - Provider Date of Admission: 04/01/18 01:33 Attending physician: Jay Grady MD Consults: GI: Dr. Lee Time Spent in preparation of Discharge (in minutes): 40 Diagnosis - Discharge Diagnosis (1) Diarrhea Status: Acute Priority: High (2) Viral gastritis Status: Acute Priority: High Hospital Course - Lab Results Lab Results: Micro Results 04/01/18 04:20 Stool C. difficile Antigen & Toxins A,B - Final Most Recent Lab Values WBC 7.2 10^3/uL (4.5-11.0) 04/02/18 06:00 RBC 4.83 10^6/uL (3.5-6.1) 04/02/18 06:00 Hgb 11.9 g/dL (12.0-16.0) L 04/02/18 06:00 Hct 37.5 % (36.0-48.0) 04/02/18 06:00 MCV 77.6 fl (80.0-105.0) L 04/02/18 06:00 MCH 24.6 pg (25.0-35.0) L 04/02/18 06:00 MCHC 31.7 g/dl (31.0-37.0) 04/02/18 06:00 RDW 16.2 % (11.5-14.5) H 04/02/18 06:00 Plt Count 241 10^3/uL (120.0-450.0) 04/02/18 06:00 MPV 9.8 fl (7.0-11.0) 04/02/18 06:00 Gran % 41.9 % (50.0-68.0) L 04/02/18 06:00 Lymph % (Auto) 47.8 % (22.0-35.0) H 04/02/18 06:00 Slope % (Auto) 9.2 % (1.0-6.0) H 04/02/18 06:00 Eos % (Auto) 0.7 % (1.5-5.0) L 04/02/18 06:00 Baso % (Auto) 0.4 % (0.0-3.0) 04/02/18 06:00 Gran # 3.01 (1.4-6.5) 04/02/18 06:00 Lymph # (Auto) 3.4 (1.2-3.4) 04/02/18 06:00 Slope # (Auto) 0.7 (0.1-0.6) H 04/02/18 06:00 Eos # (Auto) 0.1 (0.0-0.7) 04/02/18 06:00 Baso # (Auto) 0.03 K/mm3 (0.0-2.0) 04/02/18 06:00 PT 13.0 SECONDS (9.4-12.5) H 03/31/18 22:07 INR 1.14 03/31/18 22:07 APTT 33.2 Seconds (25.1-36.5) 03/31/18 22:07 Sodium 137 mmol/L (132-148) 04/02/18 06:00 Potassium 4.4 mmol/L (3.6-5.0) 04/02/18 06:00 Chloride 109 mmol/L (98-107) H 04/02/18 06:00 Carbon Dioxide 23 mmol/L (21-33) 04/02/18 06:00 Anion Gap 9 (10-20) L 04/02/18 06:00 BUN 16 mg/dL (7-21) 04/02/18 06:00 Creatinine 1.0 mg/dl (0.7-1.2) 04/02/18 06:00 Est GFR ( Amer) > 60 04/02/18 06:00 Est GFR (Non-Af Amer) 55 04/02/18 06:00 Random Glucose 92 mg/dL (70-110) 04/02/18 06:00 Calcium 8.8 mg/dL (8.4-10.5) 04/02/18 06:00 Phosphorus 4.1 mg/dL (2.5-4.5) 04/01/18 06:00 Magnesium 1.8 mg/dL (1.7-2.2) 04/01/18 06:00 Total Bilirubin 0.2 mg/dL (0.2-1.3) 04/02/18 06:00 AST 22 U/L (14-36) 04/02/18 06:00 ALT 29 U/L (7-56) 04/02/18 06:00 Alkaline Phosphatase 84 U/L (38-126) 04/02/18 06:00 Lactate Dehydrogenase 421 U/L (333-699) 03/31/18 22:07 Total Creatine Kinase 57 U/L (35-230) 03/31/18 22:07 Troponin I < 0.01 ng/mL 03/31/18 22:07 Total Protein 6.7 g/dL (5.8-8.3) 04/02/18 06:00 Albumin 3.5 g/dL (3.0-4.8) 04/02/18 06:00 Globulin 3.3 gm/dL 04/02/18 06:00 Albumin/Globulin Ratio 1.1 (1.1-1.8) 04/02/18 06:00 Amylase 64 U/L (35-125) 03/31/18 22:07 Lipase 59 U/L (23-300) 03/31/18 22:07 Urine Color Yellow (YELLOW) 04/01/18 05:55 Urine Appearance Cloudy (CLEAR) 04/01/18 05:55 Urine pH 5.5 (4.7-8.0) 04/01/18 05:55 Ur Specific [place] >= 1.030 (1.005-1.035) 04/01/18 05:55 Urine Protein Trace mg/dL (<30 mg/dL) H 04/01/18 05:55 Urine Glucose (UA) Negative mg/dL (NEGATIVE) 04/01/18 05:55 Urine Ketones Negative mg/dL (NEGATIVE) 04/01/18 05:55 Urine Blood Moderate (NEGATIVE) H 04/01/18 05:55 Urine Nitrate Positive (NEGATIVE) H 04/01/18 05:55 Urine Bilirubin Moderate (NEGATIVE) H 04/01/18 05:55 Urine Urobilinogen 0.2 E.U./dL (<1 E.U./dL) 04/01/18 05:55 Ur Leukocyte Esterase Small [place]oshi/uL (NEGATIVE) H 04/01/18 05:55 Urine RBC 5 - 10 /hpf (0-2) 04/01/18 05:55 Urine WBC 10 - 15 /hpf (0-6) 04/01/18 05:55 Ur Epithelial Cells 6 - 8 /hpf (0-5) 04/01/18 05:55 Urine Bacteria Large (NEG) 04/01/18 05:55 Urine Other Mucus 04/01/18 05:55 Stool Occult Blood Positive (NEGATIVE) H 04/01/18 04:20 Stool Leukocytes, Qual Negative (NEGATIVE) 04/01/18 04:20 - Hospital Course Hospital Course: Pt is a 67 yo F with pmhx of FAP s/p total colectomy who presents to the emergency department for multiple watery stools for 3 days. GI was consulted considering patient's history and presentation. Patient states that normally she is prone to diarrhea due to her history of colectomy, however this is usually relieved by flagyl which did not provide any relief this time. Patient endorsed that she was in a hospital often within the past week due to her daughter being hospitalized. Fecal leukocytes, stool cultures, C. diff studies were ordered as well as urinalysis. Urinalysis showed that patient did have a urinary tract infection which was treated during this hospital course with rocephin. Fecal leukocytes and C. diff studies were negative. Stool cultures are still pending and will be followed up with patient despite patient being discharged. Patient was treated with supportive care which included IVF, protonix and bismuth. Upon being re-evaluated today patient stated that diarrhea had resolved and she was feeling much better. Patient was then discharged home with abx for completion of treatment of her urinary tract infection. Case discussed with Dr. Ysabel Jansen PGY2 Discharge Exam - Head Exam Head Exam: NORMAL INSPECTION - Eye Exam Eye Exam: EOMI, Normal appearance - Respiratory Exam Respiratory Exam: Clear to PA & Lateral, UNREMARKABLE - Cardiovascular Exam Cardiovascular Exam: REGULAR RHYTHM, +S1, +S2 - GI/Abdominal Exam GI & Abdominal Exam: Normal Bowel Sounds, Unremarkable - Rectal Exam Rectal Exam: NORMAL INSPECTION - Extremities Exam Extremities exam: normal inspection - Back Exam Back exam: NORMAL INSPECTION - Neurological Exam Neurological exam: Alert, CN II-XII Intact, Oriented x3 - Psychiatric Exam Psychiatric exam: Normal Affect, Normal Mood - Skin Skin Exam: Normal Color, Warm Discharge Plan - Discharge Medications Prescriptions: Ciprofloxacin HCl [Cipro] 500 mg PO BID #2 tablet - Follow Up Plan Condition: FAIR Disposition: HOME/ ROUTINE Instructions: Diarrhea in Adolescents and Adults, Viral Gastroenteritis, Adult (DC) Additional Instructions: PLEASE FOLLOW UP WITH YOUR DOCTOR IN 1 WEEK. TAKE ALL MEDICATIONS PRESCRIBED. <Jay Grady - Last Filed: 04/03/18 07:17> Provider - Provider Date of Admission: 04/01/18 01:33 Attending physician: Jay Grady MD Hospital Course - Lab Results Lab Results: Micro Results 04/01/18 04:20 Stool C. difficile Antigen & Toxins A,B - Final Most Recent Lab Values WBC 7.2 10^3/uL (4.5-11.0) 04/02/18 06:00 RBC 4.83 10^6/uL (3.5-6.1) 04/02/18 06:00 Hgb 11.9 g/dL (12.0-16.0) L 04/02/18 06:00 Hct 37.5 % (36.0-48.0) 04/02/18 06:00 MCV 77.6 fl (80.0-105.0) L 04/02/18 06:00 MCH 24.6 pg (25.0-35.0) L 04/02/18 06:00 MCHC 31.7 g/dl (31.0-37.0) 04/02/18 06:00 RDW 16.2 % (11.5-14.5) H 04/02/18 06:00 Plt Count 241 10^3/uL (120.0-450.0) 04/02/18 06:00 MPV 9.8 fl (7.0-11.0) 04/02/18 06:00 Gran % 41.9 % (50.0-68.0) L 04/02/18 06:00 Lymph % (Auto) 47.8 % (22.0-35.0) H 04/02/18 06:00 Slope % (Auto) 9.2 % (1.0-6.0) H 04/02/18 06:00 Eos % (Auto) 0.7 % (1.5-5.0) L 04/02/18 06:00 Baso % (Auto) 0.4 % (0.0-3.0) 04/02/18 06:00 Gran # 3.01 (1.4-6.5) 04/02/18 06:00 Lymph # (Auto) 3.4 (1.2-3.4) 04/02/18 06:00 Slope # (Auto) 0.7 (0.1-0.6) H 04/02/18 06:00 Eos # (Auto) 0.1 (0.0-0.7) 04/02/18 06:00 Baso # (Auto) 0.03 K/mm3 (0.0-2.0) 04/02/18 06:00 PT 13.0 SECONDS (9.4-12.5) H 03/31/18 22:07 INR 1.14 03/31/18 22:07 APTT 33.2 Seconds (25.1-36.5) 03/31/18 22:07 Sodium 137 mmol/L (132-148) 04/02/18 06:00 Potassium 4.4 mmol/L (3.6-5.0) 04/02/18 06:00 Chloride 109 mmol/L (98-107) H 04/02/18 06:00 Carbon Dioxide 23 mmol/L (21-33) 04/02/18 06:00 Anion Gap 9 (10-20) L 04/02/18 06:00 BUN 16 mg/dL (7-21) 04/02/18 06:00 Creatinine 1.0 mg/dl (0.7-1.2) 04/02/18 06:00 Est GFR ( Amer) > 60 04/02/18 06:00 Est GFR (Non-Af Amer) 55 04/02/18 06:00 Random Glucose 92 mg/dL (70-110) 04/02/18 06:00 Calcium 8.8 mg/dL (8.4-10.5) 04/02/18 06:00 Phosphorus 4.1 mg/dL (2.5-4.5) 04/01/18 06:00 Magnesium 1.8 mg/dL (1.7-2.2) 04/01/18 06:00 Total Bilirubin 0.2 mg/dL (0.2-1.3) 04/02/18 06:00 AST 22 U/L (14-36) 04/02/18 06:00 ALT 29 U/L (7-56) 04/02/18 06:00 Alkaline Phosphatase 84 U/L (38-126) 04/02/18 06:00 Lactate Dehydrogenase 421 U/L (333-699) 03/31/18 22:07 Total Creatine Kinase 57 U/L (35-230) 03/31/18 22:07 Troponin I < 0.01 ng/mL 03/31/18 22:07 Total Protein 6.7 g/dL (5.8-8.3) 04/02/18 06:00 Albumin 3.5 g/dL (3.0-4.8) 04/02/18 06:00 Globulin 3.3 gm/dL 04/02/18 06:00 Albumin/Globulin Ratio 1.1 (1.1-1.8) 04/02/18 06:00 Amylase 64 U/L (35-125) 03/31/18 22:07 Lipase 59 U/L (23-300) 03/31/18 22:07 Urine Color Yellow (YELLOW) 04/01/18 05:55 Urine Appearance Cloudy (CLEAR) 04/01/18 05:55 Urine pH 5.5 (4.7-8.0) 04/01/18 05:55 Ur Specific [place] >= 1.030 (1.005-1.035) 04/01/18 05:55 Urine Protein Trace mg/dL (<30 mg/dL) H 04/01/18 05:55 Urine Glucose (UA) Negative mg/dL (NEGATIVE) 04/01/18 05:55 Urine Ketones Negative mg/dL (NEGATIVE) 04/01/18 05:55 Urine Blood Moderate (NEGATIVE) H 04/01/18 05:55 Urine Nitrate Positive (NEGATIVE) H 04/01/18 05:55 Urine Bilirubin Moderate (NEGATIVE) H 04/01/18 05:55 Urine Urobilinogen 0.2 E.U./dL (<1 E.U./dL) 04/01/18 05:55 Ur Leukocyte Esterase Small [place]/uL (NEGATIVE) H 04/01/18 05:55 Urine RBC 5 - 10 /hpf (0-2) 04/01/18 05:55 Urine WBC 10 - 15 /hpf (0-6) 04/01/18 05:55 Ur Epithelial Cells 6 - 8 /hpf (0-5) 04/01/18 05:55 Urine Bacteria Large (NEG) 04/01/18 05:55 Urine Other Mucus 04/01/18 05:55 Stool Occult Blood Positive (NEGATIVE) H 04/01/18 04:20 Stool Leukocytes, Qual Negative (NEGATIVE) 04/01/18 04:20 Attending/Attestation - Attestation I have personally seen and examined this patient.: Yes I have fully participated in the care of the patient.: Yes I have reviewed all pertinent clinical information, including history, physical exam and plan: Yes
== END 2018-04-02 14:49 | disposition home or self-care (01) ==
LOC: ED 21:15 → ERH 04-01 01:33 → 3RSO 04-01 02:35
PROVIDERS: ADMIT Hospitalist; ATTEND Internal Medicine
DX: A08.4 Viral intestinal infection, unspecified (principal); E86.0 Dehydration; N39.0 Urinary tract infection, site not specified; D50.9 Iron deficiency anemia, unspecified; D72.820 Lymphocytosis (symptomatic); K21.9 Gastro-esophageal reflux disease without esophagitis; Z85.028 Personal history of other malignant neoplasm of stomach
CPT/HCPCS: 36415; 74176; 80053; 81001; 82150; 82550; 83615; 83690; 83735; 84100; 84484; 85025; 85610; 85730; 87045; 87324; 89055; 93005; 99285; G0328; G0378; J0696; J1644; J7030; J7120